=== PATIENT | female | born 1975 | race Caucasian/White ===

== ENCOUNTER → 2017-10-29 | Outpatient (CLI) | payer OTHER ==
--- NOTE | 2017-10-29 13:04 | RADIOLOGY IMAGING REPORT ---
FACILITY: [facility] [place] PATIENT NAME: Abbie De Santiago : 1975 MR: [id number] V: [id number] EXAM DATE: ORDERING PHYSICIAN: JOSHUA SHIRLEY TECHNOLOGIST: [place] [facility] [place] Abbie De [place] : 1975 Visit/Account:[id number] Date of Sevice: 10/29/2017 LUMBAR SPINE COMP W/FLEX/EXT History: Low back pain. Comparison study: None. Findings: The lumbar spine has normal lordotic curvature. There is no fracture, spondylolisthesis o r spondylolysis. Findings of loss of disc space height in the lower lumbar spine are suggestive of discogenic degenera tive change. The sacroiliac joints are unremarkable. IMPRESSION: 1. Mild discogenic degenerative changes in the lower lumbar spine most prominent at L5-S1. 2. No fracture or spondylolisthesis. Report Dictated By: Fahad Butler MD at 10/29/2017 1:00 PM Report E-Signed By: Fahad Butler MD at 10/29/2017 1:00 PM WSN:[id number]
== END ==
LOC: RAD 09:17
PROVIDERS: ATTEND Chiropractor
DX: M51.17 Intervertebral disc disorders with radiculopathy, lumbosacral region (principal)
CPT/HCPCS: 72114

== ENCOUNTER → 2018-06-23 | Outpatient (CLI) | payer OTHER ==
--- NOTE | 2018-06-23 16:17 | RADIOLOGY IMAGING REPORT ---
FACILITY: [facility] PATIENT NAME: SANDRA PARISH : [id number] MR: [id number] V: [id number] EXAM DATE: [id number] ORDERING PHYSICIAN: SAADIA KELLER TECHNOLOGIST: Madai Carranza PROCEDURE:BILATERAL DIGITAL SCREENING MAMMOGRAM WITH CAD ASSISTED INTERPRETATION & 3D TOMOSYNTHESIS COMPARISON:Prior mammogram 11/27/2015. INDICATIONS:SCREENING FINDINGS: The breast tissue is heterogeneously dense. There is no dominant mass, suspicious cluster of calcifications or persistent areas of architectural distortion. TECHNIQUE: BILATERAL CC & MLO 3D TOMOGRAPHIC IMAGES WERE OBTAINED BLIATERAL XCC VIEWS WERE ALSO PREFORMED. CAD WAS USED. DIAGNOSTIC CATEGORY 1--NEGATIVE. RECOMMENDATIONS: ROUTINE MAMMOGRAM AND CLINICAL EVALUATION IN 1 YR. IMPRESSION: BIRADS 1: Negative. Dictated by: Steve Crystal M.D. on 06/23/2018 at 15:40 Transcribed by: SUSAN on 06/23/2018 at 16:07 Approved by: Steve Crystal M.D. on 06/23/2018 at 16:16 [facility]
== END ==
LOC: MAMO 00:46
PROVIDERS: ATTEND Obstetrics & Gynecology
DX: Z12.31 Encounter for screening mammogram for malignant neoplasm of breast (principal)
CPT/HCPCS: 77063; 77067